=== PATIENT | female | born 1960 | race Caucasian/White ===

== ENCOUNTER 2017-04-25 21:13 | Emergency (ER) | payer MEDICAID, OTHER ==
[~2017-04-25] VITALS: Ht 172.7 cm; Wt 77.1 kg
[2017-04-25 21:23] VITALS: BP 136/60
[2017-04-25] MEDS ORDERED: ONDANSETRON HCL 4 MG/2 ML VIAL ONE (22:43)
[2017-04-25] MEDS ORDERED: HYDROmorphone HCL 2 MG/ML VL ONE (22:43)
[2017-04-25] MEDS ORDERED: ONDANSETRON HCL 4 MG/2 ML VIAL IM ONE (22:45)
[2017-04-25] MEDS ORDERED: HYDROmorphone HCL 2 MG/ML VL IM ONE (22:45)
== END 2017-04-25 23:21 | disposition home or self-care (01) ==
LOC: EDUNIT# 21:13 → EDBD 21:13 → ER 21:21
DX: S16.1XXA Strain of muscle, fascia and tendon at neck level, initial encounter (principal); F17.210 Nicotine dependence, cigarettes, uncomplicated; W20.8XXA Other cause of strike by thrown, projected or falling object, initial encounter; Y93.89 Activity, other specified; Y99.8 Other external cause status; Y92.89 Other specified places as the place of occurrence of the external cause
CPT/HCPCS: 96372; 99284; J1170; J2405